=== PATIENT | male | born 1960 | race Caucasian/White ===

== ENCOUNTER 2023-12-14 15:04 | Outpatient (CLI) | payer OTHER ==
--- NOTE | 2023-12-14 19:26 | XRAY Report ---
PROCEDURE: Knee 3V BL INDICATIONS: BILATERAL KNEE PAIN TECHNIQUE: 3 views of the knee was obtained. COMPARISON: None FINDINGS: Bones: No fractures or dislocations. No suspicious bony lesions. Advanced left medial compartment a nd moderate right medial compartment joint space narrowing with marginal osteophyte present. Small bi lateral joint effusions. Severe right patellofemoral joint space narrowing with subchondral sclerosis IMPRESSION: Moderate to severe bilateral arthritic changes Reviewed by: Edmundo Bagley MD on 12/14/2023 6:25 PM [place] Approved by: Edmundo Bagley MD on 12/14/2023 6:25 PM AKST Station ID: [id number]
--- NOTE | 2023-12-15 08:05 | XRAY Report ---
PROCEDURE: Ankle 3+V RT INDICATIONS: RIGHT ANKLE PAIN TECHNIQUE: 3 views of the ankle were acquired. COMPARISON: None. FINDINGS: Bones: No fractures or dislocations. Question of acute distal tibial fracture. Ankle mortise is une denny with widening laterally and narrowing medially. No suspicious bony lesions. Severe tibiotalar patricia int degeneration, and mild tarsal and tarsometatarsal joint degeneration. Osseous densities in the an terior tibiotalar joint may be intra-articular bodies. Soft tissues: No tibiotalar joint effusion. Achilles tendon appears normal. Soft tissue swelling. IMPRESSION: 1. 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 2. Question intra-articular bodies in the anterior aspect of the tibiotalar joint. 3. Uneven ankle mortise suggesting ligamentous injuries. Consider MRI if clinically indicated. Reviewed by: Rach Kelsey MD on 12/15/2023 8:03 AM PST Approved by: Rach Kelsey MD on 12/15/2023 8:03 AM PST Station ID: [id number]
== END 2023-12-14 15:05 | disposition home or self-care (01) ==
LOC: DI 15:04
PROVIDERS: ATTEND Internal Medicine
DX: M17.0 Bilateral primary osteoarthritis of knee (principal); M19.071 Primary osteoarthritis, right ankle and foot

== ENCOUNTER 2024-01-14 08:00 | Outpatient (CLI) | payer OTHER ==
--- NOTE | 2024-01-14 17:15 | XRAY Report ---
PROCEDURE: Knee 1 View BILAT INDICATIONS: BILAT KNEE PAIN, BILAT PA TUNNEL ONLY TECHNIQUE: 4 views of the knee(s) were acquired. COMPARISON: None. FINDINGS: Bones: No fractures or dislocations. No suspicious bony lesions. Tricompartmental joint space conchita rowing with associated osteophytosis. Soft tissues: Small bilateral knee joint effusion. No suspicious soft tissue calcifications or cari s. IMPRESSION: No acute bony abnormality. Mild to moderate tricompartmental osteoarthritis. Kellgren-Ta scale of osteoarthritis: 2. Reviewed by: Hussein Medina MD on 01/14/2024 5:14 PM PDT Approved by: Hussein Medina MD on 01/14/2024 5:14 PM PDT Station ID: [id number]
== END 2024-01-14 23:59 | disposition home or self-care (01) ==
LOC: DI.WOS 08:00
PROVIDERS: ATTEND Physician Assistant Surgical
DX: M17.12 Unilateral primary osteoarthritis, left knee (principal)

== ENCOUNTER 2024-01-18 08:00 | Outpatient (CLI) | payer OTHER ==
--- NOTE | 2024-01-18 17:31 | XRAY Report ---
PROCEDURE: Ankle 3 View RT INDICATIONS: RIGHT ANKLE PAIN TECHNIQUE: 3 views of the ankle were acquired. COMPARISON: 12/14/2023. FINDINGS: Bones: Again noted is lateral tilting of the talus in relation to distal tibia with disruption of an kle mortise and severe tibiotalar joint osteoarthritic changes. Prominent anterior marginal osteophyt e formation at tibiotalar joint is seen. No acute fracture or dislocation. Soft tissues: Diffuse ankle soft tissue swelling is seen. Small to moderate tibiotalar joint effusion . Possible loose bodies seen in posterior aspect of tibiotalar joint. Achilles tendon appears normal. IMPRESSION: Chronic lateral tilting at tibiotalar joint with severe tibiotalar joint osteoarthritis as described above. Prominent anterior marginal osteophyte formation in tibiotalar joint. No acute fracture or dis location. Diffuse ankle soft tissue swelling and small to moderate tibiotalar joint effusion with sug gestion of loose bodies in posterior aspect of distal tibiotalar joint. Reviewed by: Khanh Rebolledo MD on 01/18/2024 5:30 PM PDT Approved by: Khanh Rebolledo MD on 01/18/2024 5:30 PM PDT Station ID: [id number]
== END 2024-01-18 23:59 | disposition home or self-care (01) ==
LOC: DI.WOS 08:00
PROVIDERS: ATTEND Orthopaedic Surgery
DX: M19.071 Primary osteoarthritis, right ankle and foot (principal); M25.771 Osteophyte, right ankle; M25.471 Effusion, right ankle